=== PATIENT | male | born 1960 | race Two or more races ===

== ENCOUNTER 2016-10-30 09:34 | Emergency (ER) | payer OTHER ==
[~2016-10-30] VITALS: Ht 177.8 cm; Wt 65.8 kg
[2016-10-30 09:59] LABS: BASOPHILS % (AUTO) 0.5 % (0.0-2.0); EOSINOPHILS # (AUTO) 0.2 /CMM (0.0-0.7); EOSINOPHILS % (AUTO) 4.4 % (0.0-6.0); HEMATOCRIT 35 % (39-51); HEMOGLOBIN 12.1 g/dL (13.5-17.5); LYMPHOCYTES # (AUTO) 1.7 /CMM (0.8-4.8); LYMPHOCYTES % (AUTO) 34.2 % (20.0-44.0); MEAN CORPUSCULAR HEMOGLOBIN 33 PG (26.0-33.0); MEAN CORPUSCULAR HGB CONC 35 g/dl (31.0-36.0); MEAN CORPUSCULAR VOLUME 95 fL (80-96); MONOCYTES # (AUTO) 0.5 /CMM (0.1-1.30); MONOCYTES % (AUTO) 10.8 % (2.0-12.0); NEUTROPHILS # (AUTO) 2.5 /CMM (1.8-8.9); NEUTROPHILS % (AUTO) 50.1 % (43.0-81.0); PLATELET COUNT (AUTO) 222 /CMM (150-450); RDW COEFFICIENT OF VARIATION 14.8 (11.5-15.0); RED BLOOD CELL COUNT(AUTO) 3.67 MIL/uL (4.5-6.0)
[2016-10-30 10:09] LABS: CALCIUM, SERUM 8.5 mg/dL (8.5-10.1); CARBON DIOXIDE 27 mmol/L (21-32); CHLORIDE 105 mmol/L (98-107); CREATININE 0.7 mg/dL (0.6-1.3); GLUCOSE 109 mg/dL (74-106); POTASSIUM 3.6 mmol/L (3.5-5.1); SODIUM SERUM 138 mmol/L (136-145); UREA NITROGEN, BLOOD 20 mg/dL (7-18)
[2016-10-30 10:11] LABS: ALCOHOL, BLOOD < 3 mg/dL (0-0)
--- NOTE | 2016-10-30 10:40 | NUR ---
BIB SELF C/O SUICIDAL IDEATION AND HEARING VOICES. PER PT HE TRIED TO RAN INTO TRAFFIC TO HURT HIMSELF. PT VERBALIZES NO CHANGE IN PLANS OF HURTING HIMSELD. NOTED CALM, COOPERATIVE. VSS. SAFETY AND COMFORT MEASURES PROVIDED. WILL MONITOR.
--- NOTE | 2016-10-30 12:47 | NUR ---
CALLED WILLIE AT [facility] TO FOLLOW UP ON PT PLACEMENT, SHE SAID SHE HAS NOT RECEIVED ANY FAX FOR THIS PT AND ASKED ME TO FAX HER THE PACKET AND SHE WILL WORK ON GETTING A BED, I FAXED THE PACKET TO [phone]
--- NOTE | 2016-10-30 13:05 | NUR ---
CALLED FOR FOOD TRAY
--- NOTE | 2016-10-30 13:50 | NUR ---
CALLED WILLIE TO FOLLOW UP ON STATUS OF PT, SHE SAID THE NURSES ARE STILL REVIEWING THE PACKET AND TO JUST WAIT TO HEAR FROM HER
--- NOTE | 2016-10-30 15:06 | NUR ---
RECEIVED CALL FROM WILLIE AT [facility], SHE SAID PT IS ACCEPTED TO [facility] BY BUT THAT THERE IS NO BED AVAILABLE RIGHT NOW AND TO CALL AND GIVE REPORT TO THEM AT [phone] AND THEY WILL TELL US WHEN TO SEND THE PT.
--- NOTE | 2016-10-30 17:08 | NUR ---
CALLED [facility], REPORT GIVEN TO ROMEL FOR ROOM [id number] Addendum: 10/30/16 at 1710 by PAMELLA [facility]
--- NOTE | 2016-10-30 17:12 | NUR ---
CALLED TRANSPORT ETA 75 MIN BRAD GUARDADO
--- NOTE | 2016-10-30 18:10 | NUR ---
FOOD PROVIDED FOR PT.
--- NOTE | 2016-10-30 18:49 | NUR ---
REPORT GIVEN TO [facility] STAFF FOR TRANSFER TO [facility].
[2016-10-30 19:04] VITALS: BP 126/72
== END 2016-10-30 19:05 ==
LOC: ER 09:36
DX: R45.851 Suicidal ideations (principal); F31.9 Bipolar disorder, unspecified
CPT/HCPCS: 36415; 80048-TC; 80305; 85025-TC; A4606; G0480; Z7610

== ENCOUNTER 2016-11-30 11:17 | Emergency (ER) | payer OTHER ==
[~2016-11-30] VITALS: Ht 177.8 cm; Wt 59.0 kg
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
[2016-11-30 11:38] LABS: APPEARANCE,URINE Clear (CLEAR); BILIRUBIN,URINE Negative (NEGATIVE); BLOOD, URINE Negative Ery/uL (NEGATIVE); COLOR,URINE Yellow (YELLOW); KETONES,URINE Negative (NEGATIVE); LEUKOCYTE ESTERASE ,URINE Negative (NEGATIVE); NITRITE, URINE Negative (NEGATIVE); PH,URINE 5.5 (5.0-8.0); PROTEIN,URINE Negative (NEGATIVE); UGLUCOSE Negative (NEGATIVE); UROBILINOGEN,URINE 0.2 EU/dL (0.2)
--- NOTE | 2016-11-30 11:41 | NUR ---
VP OUTCOMES AT BEDSIDE FOR EVAL.
[2016-11-30 11:45] LABS: BASOPHILS # (AUTO) 0.1 /CMM (0.0-0.2); BASOPHILS % (AUTO) 0.6 % (0.0-2.0); EOSINOPHILS # (AUTO) 0.1 /CMM (0.0-0.7); EOSINOPHILS % (AUTO) 1.5 % (0.0-6.0); HEMATOCRIT 35 % (39-51); HEMOGLOBIN 12.3 g/dL (13.5-17.5); LYMPHOCYTES # (AUTO) 1.4 /CMM (0.8-4.8); LYMPHOCYTES % (AUTO) 16.1 % (20.0-44.0); MEAN CORPUSCULAR HEMOGLOBIN 33 PG (26.0-33.0); MEAN CORPUSCULAR HGB CONC 35 g/dl (31.0-36.0); MEAN CORPUSCULAR VOLUME 95 fL (80-96); MONOCYTES # (AUTO) 0.7 /CMM (0.1-1.30); MONOCYTES % (AUTO) 7.6 % (2.0-12.0); NEUTROPHILS # (AUTO) 6.5 /CMM (1.8-8.9); NEUTROPHILS % (AUTO) 74.2 % (43.0-81.0); PLATELET COUNT (AUTO) 226 /CMM (150-450); RDW COEFFICIENT OF VARIATION 14.1 (11.5-15.0); RED BLOOD CELL COUNT(AUTO) 3.71 MIL/uL (4.5-6.0); WHITE BLOOD COUNT (AUTO) 8.8 K/uL (4.3-11.0)
[2016-11-30 11:53] LABS: CALCIUM, SERUM 8.4 mg/dL (8.5-10.1); CARBON DIOXIDE 26 mmol/L (21-32); CHLORIDE 103 mmol/L (98-107); CREATININE 0.9 mg/dL (0.6-1.3); GLUCOSE 112 mg/dL (74-106); POTASSIUM 3.4 mmol/L (3.5-5.1); SODIUM SERUM 137 mmol/L (136-145); UREA NITROGEN, BLOOD 29 mg/dL (7-18)
[2016-11-30 12:02] LABS: ACETAMINOPHEN 0 ug/ml (10-30); ALANINE AMINOTRANSFERASE 44 U/L (12-78); ALBUMIN 3.6 g/dL (3.4-5.0); ALCOHOL, BLOOD < 3 mg/dL (0-0); ALKALINE PHOSPHATASE 112 U/L (46-116); ASPARTATE AMINOTRANSFERASE 51 U/L (15-37); BILIRUBIN,DIRECT 0.2 mg/dL (0.0-0.2); BILIRUBIN,TOTAL 0.9 mg/dL (0.2-1.0); SALICYLATE < 0.2 mg/dL (2.8-20.0); TOTAL PROTEIN, SERUM 6.8 g/dL (6.4-8.2)
--- NOTE | 2016-11-30 12:30 | NUR ---
PT TO RADIOLOGY FOR HEAD CT SCAN VIA [facility].
--- NOTE | 2016-11-30 13:08 | NUR ---
PT IS MEDICALLY CLEARED FOR PSYCH EVAL
--- NOTE | 2016-11-30 13:08 | NUR ---
CALLED U[facility] CLINICIAN FOR EVALUATION OF PT, ETA 1 HOUR
--- NOTE | 2016-11-30 14:08 | NUR ---
TRACII AT BEDSIDE FOR PSYCH EVAL.
--- NOTE | 2016-11-30 15:57 | NUR ---
PT IS SLEEPING. ON MONITOR. STABLE WILL CONTINUE TO MONITOR.
--- NOTE | 2016-11-30 16:47 | NUR ---
Rodríguez masterson in [facility] - 11/30/16 at 1648 by DARNELL MEDICALLY CLEARED. D/C IN STABLE CONDITION.
[2016-11-30] MEDS ORDERED: ACETAMINOPHEN 325 MG TABLET ONE (18:58)
[2016-11-30] MEDS ORDERED: ACETAMINOPHEN 325 MG TABLET PO ONE (19:00)
--- NOTE | 2016-11-30 19:00 | NUR ---
PT IS C/O HEADACHE, GENERALIZED BODY ACHE. DR BAIG MADE AWARE. TYLENOL 650MG PO GIVEN. SEE EMAR.
--- NOTE | 2016-11-30 21:13 | NUR ---
RADIOLOGY AT BEDSIDE FOR R HAND XRAY.
[2016-11-30] MEDS ORDERED: HYDROCODONE/APAP 10/325MG 1 EA TABLET ONE (22:46)
[2016-11-30] MEDS ORDERED: ONDANSETRON 4 MG TAB.RAPDIS ONE (22:47)
[2016-11-30] MEDS ORDERED: HYDROCODONE/APAP 10/325MG 1 EA TABLET PO ONE (23:00)
[2016-11-30] MEDS ORDERED: ONDANSETRON 4 MG TAB.RAPDIS SL ONE (23:00)
--- NOTE | 2016-12-01 05:20 | NUR ---
CALLED [facility]. STILL NO BED AVAILABLE.
--- NOTE | 2016-12-01 05:22 | NUR ---
CALLED [facility], BRAD VIERA NO STILL NO BED AVAILABLE.
--- NOTE | 2016-12-01 07:05 | NUR ---
ASSUME PT CARE. SLEEPING. EASILY AROUSABLE. ON MONITOR W/ STABLE VITALS. WILL CONTINUE TO MONITOR.
--- NOTE | 2016-12-01 08:15 | NUR ---
PT IS AWAKE. WAS PROVIDED W/ MEAL TRAY. STABLE.
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
[2016-12-01 10:42] VITALS: BP 132/76
== END 2016-12-01 10:42 | disposition home or self-care (01) ==
LOC: ER 11:18
DX: Z00.8 Encounter for other general examination (principal); S62.616A Displaced fracture of proximal phalanx of right little finger, initial encounter for closed fracture; R45.851 Suicidal ideations; R41.82 Altered mental status, unspecified; Y04.0XXA Assault by unarmed brawl or fight, initial encounter; Y92.89 Other specified places as the place of occurrence of the external cause; Y93.89 Activity, other specified; Y99.8 Other external cause status
CPT/HCPCS: 36415; 70450-TC; 73130-TC; 80048-TC; 80076-TC; 80305; 81000-TC; 85025-TC; A4606; G0480; Q0162; Z7610

== ENCOUNTER 2016-12-14 12:23 | Emergency (ER) | payer OTHER ==
[~2016-12-14] VITALS: Ht 177.8 cm; Wt 63.5 kg
--- NOTE | 2016-12-14 12:56 | NUR ---
PRESENTS SELF TO ED DT S/I- HEARING VOICES TO KILL HIMSELF BY "SITTING ON THE MIDDLE ON THE ROAD". PATIENT IS AA4. VSS. MD BECKER MADE AWARE
--- NOTE | 2016-12-14 12:57 | NUR ---
MD BECKER AT
[2016-12-14 13:29] LABS: BASOPHILS % (AUTO) 0.4 % (0.0-2.0); EOSINOPHILS # (AUTO) 0.1 /CMM (0.0-0.7); EOSINOPHILS % (AUTO) 2.4 % (0.0-6.0); HEMATOCRIT 35 % (39-51); HEMOGLOBIN 12.1 g/dL (13.5-17.5); LYMPHOCYTES # (AUTO) 1.2 /CMM (0.8-4.8); LYMPHOCYTES % (AUTO) 23.3 % (20.0-44.0); MEAN CORPUSCULAR HEMOGLOBIN 33 PG (26.0-33.0); MEAN CORPUSCULAR HGB CONC 34 g/dl (31.0-36.0); MEAN CORPUSCULAR VOLUME 95 fL (80-96); MONOCYTES # (AUTO) 0.4 /CMM (0.1-1.30); MONOCYTES % (AUTO) 7.3 % (2.0-12.0); NEUTROPHILS # (AUTO) 3.4 /CMM (1.8-8.9); NEUTROPHILS % (AUTO) 66.6 % (43.0-81.0); PLATELET COUNT (AUTO) 218 /CMM (150-450); RDW COEFFICIENT OF VARIATION 13.5 (11.5-15.0); RED BLOOD CELL COUNT(AUTO) 3.71 MIL/uL (4.5-6.0); WHITE BLOOD COUNT (AUTO) 5.1 K/uL (4.3-11.0)
[2016-12-14 13:39] LABS: ACETAMINOPHEN 0 ug/ml (10-30); ALANINE AMINOTRANSFERASE 39 U/L (12-78); ALBUMIN 3.4 g/dL (3.4-5.0); ALCOHOL, BLOOD < 3 mg/dL (0-0); ALKALINE PHOSPHATASE 121 U/L (46-116); ASPARTATE AMINOTRANSFERASE 39 U/L (15-37); BILIRUBIN,DIRECT 0.2 mg/dL (0.0-0.2); BILIRUBIN,TOTAL 0.5 mg/dL (0.2-1.0); CALCIUM, SERUM 8.4 mg/dL (8.5-10.1); CARBON DIOXIDE 26 mmol/L (21-32); CHLORIDE 104 mmol/L (98-107); CREATININE 0.8 mg/dL (0.6-1.3); GLUCOSE 104 mg/dL (74-106); POTASSIUM 3.4 mmol/L (3.5-5.1); SALICYLATE < 0.2 mg/dL (2.8-20.0); SODIUM SERUM 138 mmol/L (136-145); TOTAL PROTEIN, SERUM 6.9 g/dL (6.4-8.2); UREA NITROGEN, BLOOD 24 mg/dL (7-18)
[2016-12-14 14:39] LABS: APPEARANCE,URINE Clear (CLEAR); BILIRUBIN,URINE Negative (NEGATIVE); BLOOD, URINE Negative Ery/uL (NEGATIVE); COLOR,URINE Yellow (YELLOW); KETONES,URINE Negative (NEGATIVE); LEUKOCYTE ESTERASE ,URINE Negative (NEGATIVE); NITRITE, URINE Negative (NEGATIVE); PROTEIN,URINE Negative (NEGATIVE); UGLUCOSE Negative (NEGATIVE); UROBILINOGEN,URINE 0.2 EU/dL (0.2)
[2016-12-14 14:44] VITALS: BP 120/88
--- NOTE | 2016-12-14 15:15 | NUR ---
CALLED [facility] CLINICIAN FOR EVAL
--- NOTE | 2016-12-14 17:49 | NUR ---
SPOKE TO [facility] [phone]. ETA 2100.
--- NOTE | 2016-12-14 21:18 | NUR ---
PT WAS PICKED UP BY TWO ENGINE LATHE SET UP OPERATOR FOR TRANSFER TO [facility]. [address] REPORT TO RN FROM [facility],. PATIENT;S VS STABLE
== END 2016-12-14 21:20 ==
LOC: ER 12:29
DX: F29 Unspecified psychosis not due to a substance or known physiological condition (principal); F32.9 Major depressive disorder, single episode, unspecified
CPT/HCPCS: 36415; 80048; 80076; 80305; 80329; 81001; 85025; 99285; A4606; G0480 ×2; Z7610; 81000-TC

== ENCOUNTER 2017-01-09 17:48 | Emergency (ER) | payer OTHER ==
[~2017-01-09] VITALS: Ht 177.8 cm; Wt 68.0 kg
--- NOTE | 2017-01-09 18:58 | NUR ---
PRESENTSN SELF TO ED FOR PSYCHE EVALUATION. REPORTED SI AND HI WITH PAL TO RAN ON A TRAFFIC. PT IS AAO4. APPEARS IN NO APPARENT DISTRESS. RESPIRATION EVEN AND UNLABORED. SKIN IS WARM TO TOUCH AND NON DIAPHORETIC. PT IS AFEBRILE. VSS
--- NOTE | 2017-01-09 19:09 | NUR ---
URINE SAMPLE SENT TO LAB
[2017-01-09 19:18] LABS: APPEARANCE,URINE Clear (CLEAR); BILIRUBIN,URINE Negative (NEGATIVE); BLOOD, URINE Negative Ery/uL (NEGATIVE); COLOR,URINE Yellow (YELLOW); KETONES,URINE Negative (NEGATIVE); LEUKOCYTE ESTERASE ,URINE Negative (NEGATIVE); NITRITE, URINE Negative (NEGATIVE); PH,URINE 6.5 (5.0-8.0); PROTEIN,URINE Negative (NEGATIVE); UGLUCOSE Negative (NEGATIVE); UROBILINOGEN,URINE 0.2 EU/dL (0.2)
[2017-01-09 19:19] LABS: BASOPHILS % (AUTO) 0.6 % (0.0-2.0); EOSINOPHILS # (AUTO) 0.2 /CMM (0.0-0.7); EOSINOPHILS % (AUTO) 2.5 % (0.0-6.0); HEMATOCRIT 37 % (39-51); HEMOGLOBIN 12.8 g/dL (13.5-17.5); LYMPHOCYTES # (AUTO) 1.5 /CMM (0.8-4.8); LYMPHOCYTES % (AUTO) 22.8 % (20.0-44.0); MEAN CORPUSCULAR HEMOGLOBIN 33 PG (26.0-33.0); MEAN CORPUSCULAR HGB CONC 34 g/dl (31.0-36.0); MEAN CORPUSCULAR VOLUME 95 fL (80-96); MONOCYTES # (AUTO) 0.4 /CMM (0.1-1.30); MONOCYTES % (AUTO) 6.4 % (2.0-12.0); NEUTROPHILS # (AUTO) 4.4 /CMM (1.8-8.9); NEUTROPHILS % (AUTO) 67.7 % (43.0-81.0); PLATELET COUNT (AUTO) 155 /CMM (150-450); RDW COEFFICIENT OF VARIATION 13.6 (11.5-15.0); RED BLOOD CELL COUNT(AUTO) 3.92 MIL/uL (4.5-6.0); WHITE BLOOD COUNT (AUTO) 6.5 K/uL (4.3-11.0)
[2017-01-09 19:26] LABS: CALCIUM, SERUM 8.7 mg/dL (8.5-10.1); CARBON DIOXIDE 27 mmol/L (21-32); CHLORIDE 103 mmol/L (98-107); CREATININE 0.8 mg/dL (0.6-1.3); GLUCOSE 107 mg/dL (74-106); POTASSIUM 3.3 mmol/L (3.5-5.1); SODIUM SERUM 135 mmol/L (136-145); UREA NITROGEN, BLOOD 20 mg/dL (7-18)
[2017-01-09 19:32] LABS: ALANINE AMINOTRANSFERASE 34 U/L (12-78); ALBUMIN 3.7 g/dL (3.4-5.0); ALCOHOL, BLOOD < 3 mg/dL (0-0); ALKALINE PHOSPHATASE 100 U/L (46-116); ASPARTATE AMINOTRANSFERASE 36 U/L (15-37); BILIRUBIN,DIRECT 0.1 mg/dL (0.0-0.2); BILIRUBIN,TOTAL 0.5 mg/dL (0.2-1.0)
[2017-01-09 19:36] LABS: ACETAMINOPHEN < 2 ug/ml (10-30); SALICYLATE < 0.2 mg/dL (2.8-20.0)
--- NOTE | 2017-01-09 22:35 | NUR ---
TONY RN AWARE OF EVAL
--- NOTE | 2017-01-09 22:35 | NUR ---
Patient is resting comfortably in bed with eyes closed. Easily aroused. VSS
--- NOTE | 2017-01-09 23:26 | NUR ---
CONTINUITY OF CARE TRANSFFERED TO [facility]
--- NOTE | 2017-01-10 04:25 | NUR ---
Called [facility]. No available beds.
--- NOTE | 2017-01-10 06:58 | NUR ---
pt sleeping in [facility]. no signs of distress noted. will cont to monitor pt
--- NOTE | 2017-01-10 07:43 | NUR ---
CALLED FOR FOOD TRAY
--- NOTE | 2017-01-10 09:02 | NUR ---
PT ALERT ORIENTED AMBULATORY DENIES SI AND HI
--- NOTE | 2017-01-10 09:05 | NUR ---
Patient discharged to home in stable condition. Written and verbal after care instructions given. Patient verbalizes understanding of instruction.
[2017-01-10 09:06] VITALS: BP 140/80
== END 2017-01-10 09:06 | disposition home or self-care (01) ==
LOC: ER 17:50
DX: R45.851 Suicidal ideations (principal); F31.9 Bipolar disorder, unspecified
CPT/HCPCS: 36415; 80048; 80076; 80305; 80329; 81001; 85025; 99284; A4606; G0480 ×2; Z7610; 81000-TC

== ENCOUNTER 2017-01-13 23:10 | Emergency (ER) | payer OTHER ==
[~2017-01-13] VITALS: Ht 170.2 cm; Wt 63.5 kg
--- NOTE | 2017-01-13 23:25 | NUR ---
TO BED 2 STATES "I'VE BEEN OFF OF SEROQUEL 250MG AND PAXIL 50MG FOR 2 DAYS, NOW I AM SUICIDAL" I WANT TO RUN INTO TRAFFIC. PT CALM AND COOPERATIVE AT THIS TIME. PT AAOX4 NO ACUTE DISTRESS NOTED, RESP EVEN AND UNLABORED.
--- NOTE | 2017-01-14 00:06 | NUR ---
JAY WALDRONW AT BEDSIDE TO YOSI ALTAMIRANO.
[2017-01-14 00:17] LABS: BASOPHILS % (AUTO) 0.5 % (0.0-2.0); EOSINOPHILS # (AUTO) 0.2 /CMM (0.0-0.7); EOSINOPHILS % (AUTO) 4.1 % (0.0-6.0); HEMATOCRIT 38 % (39-51); HEMOGLOBIN 12.6 g/dL (13.5-17.5); LYMPHOCYTES # (AUTO) 1.8 /CMM (0.8-4.8); LYMPHOCYTES % (AUTO) 30.9 % (20.0-44.0); MEAN CORPUSCULAR HEMOGLOBIN 32 PG (26.0-33.0); MEAN CORPUSCULAR HGB CONC 33 g/dl (31.0-36.0); MEAN CORPUSCULAR VOLUME 96 fL (80-96); MONOCYTES # (AUTO) 0.5 /CMM (0.1-1.30); MONOCYTES % (AUTO) 7.7 % (2.0-12.0); NEUTROPHILS # (AUTO) 3.4 /CMM (1.8-8.9); NEUTROPHILS % (AUTO) 56.8 % (43.0-81.0); PLATELET COUNT (AUTO) 181 /CMM (150-450); RDW COEFFICIENT OF VARIATION 14.6 (11.5-15.0); RED BLOOD CELL COUNT(AUTO) 3.94 MIL/uL (4.5-6.0); WHITE BLOOD COUNT (AUTO) 5.9 K/uL (4.3-11.0)
[2017-01-14 00:28] LABS: CALCIUM, SERUM 8.8 mg/dL (8.5-10.1); CREATININE 0.7 mg/dL (0.6-1.3); POTASSIUM 3.6 mmol/L (3.5-5.1)
[2017-01-14 00:34] LABS: ALBUMIN 3.5 g/dL (3.4-5.0); BILIRUBIN,DIRECT 0.1 mg/dL (0.0-0.2); BILIRUBIN,TOTAL 0.3 mg/dL (0.2-1.0)
[2017-01-14 00:37] LABS: SALICYLATE 0.2 mg/dL (2.8-20.0)
--- NOTE | 2017-01-14 02:21 | NUR ---
PT ASLEEP, NO ACUTE DISTRESS NOTED, RESP EVEN AND UNLABORED. CALL LIGHT WIHTIN REACH.
--- NOTE | 2017-01-14 02:59 | NUR ---
PT AMBULATORY TO THE BATHROOM WITH STEADY GAIT NOTED.
--- NOTE | 2017-01-14 03:42 | NUR ---
Call from Onur Wang. # for report [phone]. Dr Lanids.
[2017-01-14 04:04] VITALS: BP 126/69
--- NOTE | 2017-01-14 04:05 | NUR ---
Patient discharged to home in stable condition. Written and verbal after care instructions given. Patient verbalizes understanding of instruction. ambulatory with a steady gait
== END 2017-01-14 04:05 | disposition home or self-care (01) ==
LOC: ER 23:10
DX: R45.851 Suicidal ideations (principal); F15.10 Other stimulant abuse, uncomplicated; F31.9 Bipolar disorder, unspecified
CPT/HCPCS: 36415; 80048-TC; 80076-TC; 80305; 85025-TC; A4606; G0480; Z7610

== ENCOUNTER 2017-02-07 11:13 | Emergency (ER) | payer OTHER ==
[~2017-02-07] VITALS: Ht 180.3 cm; Wt 65.8 kg
--- NOTE | 2017-02-07 11:16 | NUR ---
PT AMBULATORY TO ER BED 10. STATES LOST HIS PSYCH MEDICATION AND NOW HAVING SI W/ PLAN TO LAY DOWN ON THE TRAIN TRACKS. PT STATES TAKES SEROQUEL AND PAXIL AND WOULD LIKE A MED REFIL. AAOX3. VERBALLY RESPONSIVE AND COOPERATIVE. PLACED ON SI PRECAUTION. AWAITNG MD DELUCA.
--- NOTE | 2017-02-07 11:37 | NUR ---
DR PRUITT AT BEDSIDE FOR EVAL.
--- NOTE | 2017-02-07 11:43 | NUR ---
EDUCATIONAL ADMINISTRATOR AT BEDSIDE FOR BLOOD DRAW.
[2017-02-07] MEDS ORDERED: OLANZAPINE 5 MG/TAB.RAPDIS ONE (11:48)
[2017-02-07 11:50] LABS: BASOPHILS % (AUTO) 0.7 % (0.0-2.0); EOSINOPHILS # (AUTO) 0.3 /CMM (0.0-0.7); EOSINOPHILS % (AUTO) 4.8 % (0.0-6.0); HEMATOCRIT 36 % (39-51); HEMOGLOBIN 12.6 g/dL (13.5-17.5); LYMPHOCYTES # (AUTO) 1.7 /CMM (0.8-4.8); LYMPHOCYTES % (AUTO) 30.2 % (20.0-44.0); MEAN CORPUSCULAR HEMOGLOBIN 33 PG (26.0-33.0); MEAN CORPUSCULAR HGB CONC 35 g/dl (31.0-36.0); MEAN CORPUSCULAR VOLUME 95 fL (80-96); MONOCYTES # (AUTO) 0.3 /CMM (0.1-1.30); MONOCYTES % (AUTO) 6.1 % (2.0-12.0); NEUTROPHILS # (AUTO) 3.4 /CMM (1.8-8.9); NEUTROPHILS % (AUTO) 58.2 % (43.0-81.0); PLATELET COUNT (AUTO) 227 /CMM (150-450); RDW COEFFICIENT OF VARIATION 13.3 (11.5-15.0); RED BLOOD CELL COUNT(AUTO) 3.79 MIL/uL (4.5-6.0); WHITE BLOOD COUNT (AUTO) 5.7 K/uL (4.3-11.0)
[2017-02-07] MEDS ORDERED: OLANZAPINE 5 MG/TAB.RAPDIS PO ONE (12:00)
[2017-02-07 12:19] LABS: ALCOHOL, BLOOD < 3 mg/dL (0-0); CALCIUM, SERUM 8.2 mg/dL (8.5-10.1); CARBON DIOXIDE 25 mmol/L (21-32); CHLORIDE 106 mmol/L (98-107); CREATININE 0.8 mg/dL (0.6-1.3); GLUCOSE 126 mg/dL (74-106); POTASSIUM 3.6 mmol/L (3.5-5.1); SODIUM SERUM 139 mmol/L (136-145); UREA NITROGEN, BLOOD 21 mg/dL (7-18)
--- NOTE | 2017-02-07 12:44 | NUR ---
CALLED ART STUDENT ADMISSIONS CLERK.
--- NOTE | 2017-02-07 12:51 | NUR ---
CALLED U[facility]ULA TAILMAN.
--- NOTE | 2017-02-07 14:54 | NUR ---
TABITHA FROM [facility] CALLED PATIENT WILL BE ACCEPTED. ACCEPTING DR SHARIF NUMBER TO GIVE REPORT EXT. [phone]
--- NOTE | 2017-02-07 15:07 | NUR ---
REPORT GIVEN TO MARIAJOSE. AWAITING TRANSFER TO FLOOR.
--- NOTE | 2017-02-07 15:15 | NUR ---
CALLED [facility], TRANSPORT IS ALREADY HERE.
--- NOTE | 2017-02-07 15:25 | NUR ---
PT TRANFERED TO [facility]. STABLE CONDITION.
[2017-02-07 15:28] VITALS: BP 136/95
== END 2017-02-07 15:29 ==
LOC: ER 11:16
DX: R45.851 Suicidal ideations (principal); F31.9 Bipolar disorder, unspecified; F20.9 Schizophrenia, unspecified; F10.10 Alcohol abuse, uncomplicated; Z91.14 Patient's other noncompliance with medication regimen
CPT/HCPCS: 36415; 80048; 80305; 85025; 99285; A4606; G0480; Z7610

== ENCOUNTER 2017-02-24 22:11 | Emergency (ER) | payer OTHER ==
[~2017-02-24] VITALS: Ht 172.7 cm; Wt 68.0 kg
[2017-02-24 22:11] VITALS: BP 124/79
--- NOTE | 2017-02-25 00:35 | NUR ---
pt called to room, no response.
--- NOTE | 2017-02-25 00:45 | NUR ---
pt called to room, no response.
== END 2017-02-25 00:45 | disposition left against medical advice (07) ==
LOC: ER 22:11
DX: Z53.21 Procedure and treatment not carried out due to patient leaving prior to being seen by health care provider (principal)
CPT/HCPCS: A4606; Z7610

== ENCOUNTER 2017-05-08 23:16 | Emergency (ER) | payer OTHER ==
[~2017-05-08] VITALS: Ht 177.8 cm; Wt 77.1 kg
--- NOTE | 2017-05-08 23:20 | NUR ---
CALLED PT IN [place], NO RESPONSE
--- NOTE | 2017-05-08 23:53 | NUR ---
CALLED PT IN [place], NO RESPONSE
[2017-05-09 00:07] LABS: BASOPHILS % (AUTO) 0.8 % (0.0-2.0); EOSINOPHILS # (AUTO) 0.5 /CMM (0.0-0.7); EOSINOPHILS % (AUTO) 11.1 % (0.0-6.0); HEMATOCRIT 38 % (39-51); HEMOGLOBIN 13.3 g/dL (13.5-17.5); LYMPHOCYTES # (AUTO) 1.4 /CMM (0.8-4.8); MEAN CORPUSCULAR HEMOGLOBIN 33 PG (26.0-33.0); MEAN CORPUSCULAR HGB CONC 35 g/dl (31.0-36.0); MEAN CORPUSCULAR VOLUME 95 fL (80-96); MONOCYTES # (AUTO) 0.4 /CMM (0.1-1.30); MONOCYTES % (AUTO) 9.4 % (2.0-12.0); NEUTROPHILS % (AUTO) 46.7 % (43.0-81.0); PLATELET COUNT (AUTO) 209 /CMM (150-450); RDW COEFFICIENT OF VARIATION 13.4 (11.5-15.0); RED BLOOD CELL COUNT(AUTO) 3.98 MIL/uL (4.5-6.0); WHITE BLOOD COUNT (AUTO) 4.4 K/uL (4.3-11.0)
--- NOTE | 2017-05-09 00:09 | NUR ---
URINE COLLECTED. SENT TO LAB
--- NOTE | 2017-05-09 00:10 | NUR ---
PT AMBULATORY TO ER BED 7 PT STATES "BEEN OFF OF PAXIL AND SEROQUEL FOR 4 DAYS AND I WANNA KILL MYSELF"; DENIES PLAN AT THIS TIME. PT AOX3 RR EVEN AND UNLABORED. NO SOB NOTED. NAD NOTED. NO NVD AT THIS TIME. PT GOWNED AND PLACED ON MONTIOR WAITING FOR MD DELUCA.
[2017-05-09 00:12] LABS: APPEARANCE,URINE CLEAR (CLEAR); BILIRUBIN,URINE NEGATIVE (NEGATIVE); BLOOD, URINE NEGATIVE Ery/uL (NEGATIVE); COLOR,URINE YELLOW (YELLOW); KETONES,URINE NEGATIVE (NEGATIVE); LEUKOCYTE ESTERASE ,URINE NEGATIVE (NEGATIVE); NITRITE, URINE NEGATIVE (NEGATIVE); PROTEIN,URINE NEGATIVE (NEGATIVE); UGLUCOSE NEGATIVE (NEGATIVE); UROBILINOGEN,URINE 0.2 EU/dL (0.2)
[2017-05-09 00:21] LABS: CALCIUM, SERUM 8.9 mg/dL (8.5-10.1); CARBON DIOXIDE 26 mmol/L (21-32); CHLORIDE 103 mmol/L (98-107); CREATININE 0.9 mg/dL (0.6-1.3); GLUCOSE 121 mg/dL (74-106); POTASSIUM 3.9 mmol/L (3.5-5.1); SODIUM SERUM 138 mmol/L (136-145); UREA NITROGEN, BLOOD 22 mg/dL (7-18)
[2017-05-09 00:26] LABS: ALANINE AMINOTRANSFERASE 31 U/L (12-78); ALBUMIN 3.6 g/dL (3.4-5.0); ALKALINE PHOSPHATASE 115 U/L (46-116); ASPARTATE AMINOTRANSFERASE 26 U/L (15-37); BILIRUBIN,DIRECT 0.1 mg/dL (0.0-0.2); BILIRUBIN,TOTAL 0.4 mg/dL (0.2-1.0); TOTAL PROTEIN, SERUM 7.3 g/dL (6.4-8.2)
[2017-05-09 00:27] LABS: ACETAMINOPHEN 0 ug/ml (10-30); ALCOHOL, BLOOD < 3 mg/dL (0-0); SALICYLATE < 0.2 mg/dL (2.8-20.0)
--- NOTE | 2017-05-09 01:04 | NUR ---
ART AT BEDSIDE FOR EVAL.
--- NOTE | 2017-05-09 04:30 | NUR ---
SPOKE WITH PHILIPPE AT [facility] INTAKE. [facility] HAS NO PSYCH BEDS AVAILABLE AND HAS BEDS IN THEIR ER AWAITING PSYCH PLACEMENT WELL. PER MARGARET, IF NO BEDS ARE AVAILABLE, PT WILL LIKELY GO TO [facility] IN THE MORNING WHEN A BED IS AVAILABLE.
--- NOTE | 2017-05-09 06:37 | NUR ---
Patient is resting comfortably in bed with eyes closed. Easily aroused. VSS
--- NOTE | 2017-05-09 07:01 | NUR ---
REPORT GIVEN TO MARIO ALBERTO MAYERS.
--- NOTE | 2017-05-09 07:02 | NUR ---
RECEIVED REPORT, PATIENT REMAINS CALM AND STABLE. WILL PROVIDE PAULINA.
--- NOTE | 2017-05-09 07:55 | NUR ---
[facility] CALLED,WAITING ON D/C PER PHILIPPE
--- NOTE | 2017-05-09 12:30 | NUR ---
CALL FROM [facility], ACCEPTED BY DR HONG
--- NOTE | 2017-05-09 12:37 | NUR ---
REPORT GIVEN TO DAVID LLANES FOR PAULINA
[2017-05-09 13:30] VITALS: BP 142/92
--- NOTE | 2017-05-09 13:30 | NUR ---
PATIENT TRANSFERRED TO [facility] VIA STRETCHER IN STABLE CONDITION.
== END 2017-05-09 13:30 ==
LOC: ER 23:18
DX: F32.9 Major depressive disorder, single episode, unspecified (principal); R45.851 Suicidal ideations; F10.10 Alcohol abuse, uncomplicated
CPT/HCPCS: 36415; 80048; 80076; 80305; 80329; 81001; 85025; 99285; A4606; G0480 ×2; Z7610; 81000-TC